=== PATIENT | female | born 1995 | race Caucasian/White ===

== ENCOUNTER → 2024-04-11 18:36 | Outpatient (REF) | payer OTHER, SELFPAY | LOC: MRI 18:36 | PROVIDERS: ATTENDING PHYSICIAN Nurse Practitioner Adult Health; FAMILY PHYSICIAN Family Medicine | DX: N93.9 Abnormal uterine and vaginal bleeding, unspecified (principal); Q51.28 Other and unspecified doubling of uterus; D25.9 Leiomyoma of uterus, unspecified | CPT/HCPCS: 72197; A9575 ==

== ENCOUNTER → 2024-07-25 16:09 | Outpatient (REF) | payer BC, SELFPAY | LOC: MRI 3T 16:09 | PROVIDERS: ATTENDING PHYSICIAN Nurse Practitioner Family; FAMILY PHYSICIAN Physician Assistant Medical | DX: D35.2 Benign neoplasm of pituitary gland (principal) | CPT/HCPCS: 70553; A9575 ==

== ENCOUNTER 2024-08-02 06:15 | Day surgery (SDC) | payer BC, SELFPAY ==
--- NOTE | 2024-07-31 06:18 | W.CON.GYNONC ---
Chief Complaint
-
abnormal uterine bleeding
History of Present Illness
29�year�old�presenting�to�the�office�for�consultation�referred�to�me�by�Dr.�Gerstein�and�Dr�Lima.�Patient�suffers�from�abnormal
uterine�bleeding,�she�started�her�period�at�age�9,�typically�she�bleeds�7�to�9�days,�bleeding�occurs�every�30�days,�she�tried�OCPs
for�3�months�in�2016�unsuccessfully.�Nowadays�2�to�3�days�out�of�the�month�the�patient�is�in�significant�pain�specially�right�lower quadrant�masses�work
MRI�of�the�pelvis�shows�uterine�didelphys,�3.6�cm�right�anterior�subserosal�uterine�leiomyoma,�1.9�cm�corpus�luteum�cyst�right ovary,�1.3�cm�simple�left�paraovarian�cyst�and�small�amount�of�peritoneal�fluid.
TRIAL MGR�history,�Pap�smear�normal�last�was�done�in�Neda�2023�from�left�and�right�cervix,�she�is�currently�on�not�any��control. She�has�had�prior�Gardasil�vaccination.
OB�history�total�pregnancies�0
Family�history�patient�is�adopted�does�not�know�her�family�history Medications�include�Advair�discus�aerosol�Powder�breath�albuterol�meclizine�naproxen
Allergies No�Known�Allergies Medications
Past�Medical�History asthma covid�19 uterus�didelphys�+�2�cervices�and�vaginal�septum
Social�History Former�Smoker.�Year�Quit�2020. Social�use�of�alcohol. Occupational�Status:�Current:�government�employe. Marital�Status:�Patient�is�
Review�Of�Systems The�review�of�12�systems�is�negative�except�as�outlined�in�history�of�present�illness.
Medical History
Allergies
Allergies reflect when allergies were last updated in [facility].
No Known Allergies Allergy (Verified 07/26/24 14:19)
Physical Exam
Physical Exam
Pelvic�Examination:� External�normal�labia,�urethra,�anus.� Vagina:�Normal�mucosa.�There�is�no�vaginal�septum Cervix:�normal�appearance,�no�discharge.�2�osses�are�visualized Uterus:�normal�size. Adnexa:�No�pelvic�mass.� RVE:�no�masses�or�nodularity
General:�Well�developed,�well�nourished�patient.�In�no�acute�distress.
Neck:�No�thyromegaly.�No�cervical�lymphadenopathy.
Lungs:�Clear�to�auscultation.�Good�air�movement�bilaterally.
Cardiac:�Regular�rate.�Regular�rhythm.�No�murmurs�appreciated.
Right�Breast:�No�masses�or�dimpling.�No�nipple�discharge. Left�Breast:�No�masses�or�dimpling.�No�nipple�discharge. Abdomen:�Abdomen�is�soft.�Non�tender�to�palpation.�Non�distended.
Extremities:�No�edema. Hematologic/Lymphatic:�No�palpable�lymphadenopathy.
Skin:Non�jaundiced.�No�petechia.�No�purpura.
Neurologic:�Speech�is�fluent.�Normal�gait�and�station.�Cranial�nerves�intact.
Results
-
[facility]
[address] [place] [address]
[phone]
Patient Name: REGINE PEREZ
: 1995
Unit Number: [id number]
Age/Sex: 29/F
Patient
Location: MRI 3T
Order Provider: Yanelis Becerril
Exam Service Date: 07/25/24

Magnetic Resonance Imaging Rpt
SignedOrder #:[id number]
Exams: MR Brain W/o & With Contrast
CPT: 06700
PROCEDURE: MR Brain W/o  With Contrast
COMPARISON: Brain MRI dated 10/23/2015
CLINICAL INDICATION: Headache, dizziness, visual changes, elevated prolactin
TECHNIQUE: Scanning through the head performed using dedicated pituitary protocol before and after IV gadolinium administered
FINDINGS: No intracranial hemorrhage, mass effect, midline shift. Brain volume is normal. There is increased inversion recovery signal in the white matter adjacent to the posterior body of each lateral ventricle. This is similar to previous MRI.
Finding on the right measures 9 mm in diameter. Finding on the left measures 1.4 cm in diameter. 2 tiny foci of increased inversion recovery signal in the right centrum semiovale. These are seen on series 501, image 18. These are stable. No new
lesion in the brain. No restricted diffusion or abnormal enhancement by the brain.
7th and 8th nerves normal in appearance as they exit the brainstem and enter the internal auditory canals. Flow voids unremarkable. Paranasal sinuses are clear.
Pituitary is normal in size and configuration. Again noted is vertically oriented nonenhancing focus between the adenohypophysis and neurohypophysis. This is well seen on series 901, image 9. This measures 7 mm in craniocaudal diameter and 3 mm in
AP diameter. 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 Pituitary otherwise unremarkable. Pituitary stalk is midline. No suprasellar cistern mass. Optic chiasm normal in appearance.
IMPRESSION:
No change in vertically oriented nonenhancing focus between the adenohypophysis and neurohypophysis. 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
There is no MR evidence for pituitary adenoma
Redemonstration of increased inversion recovery signal in white matter adjacent to posterior body of each lateral ventricle. 2 stable tiny foci of increased inversion recovery signal in right centrum semiovale. These findings are nonspecific. They
could be related to vasculitis, demyelinating process such as multiple sclerosis, Lyme disease, migraine. Please correlate with clinical and laboratory data.
Electronically signed by Grady Mitchell MD, 07/26/2024 10:24 AM
Dictated By: Stephen TORO,Grady Barton.
Dictated Date & Time: 07/26/24 1005

[facility]
[address] [place] [address]
[phone]
Patient Name: REGINE PEREZ
: 1995
Unit Number: [id number]
Age/Sex: 28/F
Patient
Location: MRI
Order Provider: Hayley Méndez
Exam Service Date: 04/11/24

Magnetic Resonance Imaging Rpt
SignedOrder #:[id number]
Exams: MR Pelvis W/o & With Contrast
CPT: 21479
PROCEDURE: MR Pelvis W/o  With Contrast
CLINICAL INDICATION: Abnormal uterine bleeding (AUB). Uterine didelphys. Uterine fibroid. Severe right-sided pelvic and lower abdominal pain.
TECHNIQUE: An MRI examination of the pelvis was performed with and without intravenous contrast on a 1.5 Candy magnet. Sagittal T2 fat-suppressed, sagittal T1 fat-suppressed, oblique axial T1, oblique axial T2 fat-suppressed, oblique coronal T2
fat-suppressed, and oblique axial fat suppressed Thrive imaging sequences were obtained prior to the administration intravenous contrast. Following the intravenous administration of 16 mL Clariscan gadolinium contrast material, oblique axial thrive,
sagittal T1 fat-suppressed, oblique coronal T1 fat-suppressed imaging sequences were obtained.
COMPARISON: Comparison is made with a CT examination of the abdomen and pelvis performed 08/31/2022 and an MRI examination of the pelvis performed 07/01/2022.
FINDINGS:
UTERUS: The uterus is anteverted. There are 2 separate uterine horns and 2 separate cervixes consistent with a uterine didelphys. The endometrium measures 2.2 cm in thickness in the right uterine horn and 1.7 cm in thickness in the left uterine
horn. There is a 3.0 x 3.6 x 2.5 cm subserosal mass exophytic from the right anterior body of the right uterine horn containing mostly low T2 signal with small central internal foci of high T1 signal suggesting subacute hemorrhage or necrosis. There
is a minimal amount of peritoneal fluid between the 2 uterine horns.
RIGHT OVARY: There is a 1.9 x 1.8 x 1.8 cm thick-walled rim-enhancing enhancing corpus luteal cyst in the right ovary. There are small follicles in the right ovary. There is a small amount of peritoneal fluid around the right ovary.
LEFT OVARY: There are multiple small follicles in the left ovary. There is a 1.3 x 1.2 x 1.0 cm simple paraovarian cyst superior and lateral to the left ovary surrounded by small amount of peritoneal fluid.
The urinary bladder appears normal. There is no pelvic lymphadenopathy.
GASTROINTESTINAL TRACT: There is no abnormal distention or wall thickening in the sigmoid colon or rectum.
SKELETON: There is no bone marrow edema adjacent to the sacroiliac joints to suggest sacroiliitis. There is no subchondral bone marrow edema or joint effusion in either hip. There is a transitional lumbosacral vertebral segment.
IMPRESSION:
1. UTERINE DIDELPHYS.
2. 3.6 cm right anterior subserosal uterine leiomyoma.
3. 1.9 cm corpus luteal cyst in the right ovary.
4. 1.3 cm simple left paraovarian cyst.
5. Small amount of peritoneal fluid around the ovaries and between the uterine horns.
Electronically signed by Alex Hodge MD, 04/12/2024 9:24 AM
Dictated By: Ayesha TORO,Alex Mann.
Dictated Date & Time: 04/12/24802

[facility]
[address] [place] [address] [place] [address]
[phone]
Patient Name: REGINE PEREZ
: 1995
Unit Number: [id number]
Age/Sex: 27/F
Patient
Location: EMR
Order Provider: Efrain Pereyra PA-C
Exam Service Date: 08/31/22

Diagnostic Imaging Report
SignedOrder #:[id number]
Exams: CT Abd/pel W Iv And Oral Contr
Scanning parameters: CT of the abdomen and pelvis with intravenous contrast material was obtained. Automated exposure control was used.
INDICATION: Right lower quadrant pain
Comparison examination: 07/01/2022
FINDINGS:
The lung bases are clear.
The liver is normal.
The spleen is normal.
The pancreas is normal.
The gallbladder is normal.
The kidneys are normal.
There is no hydronephrosis.
The adrenals are normal.
There is no abdominal lymphadenopathy.
There is no pelvic lymphadenopathy.
There is no inguinal lymphadenopathy.
The urinary bladder is normal.
There is no acute bowel pathology.
The appendix is normal
There are no areas of bowel wall thickening or pericolonic inflammatory stranding
There is uterus didelphys with 3.4 cm exophytic fibroid at the right uterine fundus
There is a 13 mm right ovarian cyst
There are no areas of pericolonic inflammatory stranding.
There are no significant osseous abnormalities.
IMPRESSION:
1).There is uterus didelphys with 3.4 cm exophytic fibroid at the right uterine fundus
2). There is a 13 mm right ovarian cyst
Electronically signed by Prashant Marsh MD 08/31/2022 10:31 PM
Impression / Plan
-
Patient�has�uterine�didelphys,�she�has�abnormal�uterine�bleeding,�she�has�significant�dysmenorrhea�and�she�has�had�elevated prolactin�level
#1�a�panel�of�blood�work�will�be�done�to�reassess�coagulation�factors�and�assess�for�her�anemia�and�source�of�anemia.�Any�iron deficiency�needs�to�be�addressed
#2�repeat�prolactin�level,�repeat�MRI�of�the�brain,�refer�to�neurosurgery�for�possible�assessment #3�patient�has�a�lot�of�fear�about�swallowing�and�states�that�is�difficult�for�her,�a�video�barium�swallow�and�upper�GI�is�ordered
#4�patient�needs�to�undergo�exam�under�anesthesia,�assessment�of�both�cervical�canal�and�uterine�cavities�with�D&C�hysteroscopy to�exclude�possibility�of�hyperplasia�or�endometrial�cancer
#5�I�am�inclined�to�ensure�that�we�do�not�have�ability�to�correct�her�abnormal�bleeding�using�medical�intervention�such�as�oral
contraceptive�pills,�or�correction�of�her�prolactin�level�before�surgical�treatment�is�employed.
She�informs�me�that�she�is�not�interested�in�childbearing�now�or�in�the�future.�If�she�needs�to�have�a�hysterectomy�she�is�accepting
of�that�and�came�to�me�primarily�to�discuss�that.�I�do�believe�she�is�a�candidate�eventually�if�she�wants�to�for�robotic�assisted�total
laparoscopic�hysterectomy�with�bilateral�salpingectomy�and�preservation�of�by�both�of�her�ovaries.�I�will�discuss�this�option�with�her later�when�we�have�more�information.
[2024-08-02] VITALS (11 sets, daily range): BP systolic 108–126; BP diastolic 66–79
[2024-08-02] MEDS: HEPARIN 5000 UNITS SC (07:31)
[2024-08-02] MEDS: NORMOSOL-R/PLASMALYTE-A 1000 IV (07:33)
--- NOTE | 2024-08-02 10:00 | SUR.PHASEI ---
1000 - sleeps unless disturbed, vss, when awakened c/o - ' I have to pee' - and then states pain- ' I don't do well with pain'. Will medicate for same, though quickly falls back to sleep
[2024-08-02] MEDS: DILAUDID 0.5 MG IV (10:06)
--- NOTE | 2024-08-02 10:08 | OR.RPT ---
Operative Report
Operative Report
Date of procedure: August 02, 2024
Preoperative diagnosis: Abnormal uterine bleeding, congenital malformation with uterine didelphys
Postoperative diagnosis same plus multiple uterine polyps
Procedure:
#1 exam under anesthesia
#2 excision of vaginal septum
#3 diagnostic hysteroscopy, MyoSure polypectomy right uterus
#4 fractional D&C right uterus
#5 diagnostic hysteroscopy, MyoSure polypectomy left uterus
#6 fractional D&C left uterus
Surgeon: Suleiman Hargrove MD
Assist: Papa Toscano PA-C
Anesthesia: General , LMA intubation
Complication: None
Estimated blood loss: 50 cc
Specimens: Vaginal septum, right endocervical curettage, left endocervical curettage, right EMC, left EMC, MyoSure shavings right uterine cavity, MyoSure shavings left uterine cavity
Procedure in detail: This patient was taken to the operating room for a detailed evaluation of anatomical abnormalities as well as assessment of etiology of abnormal uterine bleeding. Upon arrival to the operating room she was placed in supine
position, general anesthesia was administered she was intubated without any difficulty. She was placed in lithotomy position using yellowfin stirrups and prepped on the abdomen perineum and vagina and she was draped. Timeout procedure was carried
out, she received Ancef 2 g IV for prophylaxis. Patient has normal bilateral right and left vulva, there is a midline vaginal septum creating a right and left vaginal canal. The septum is vertical in nature. With great degree of difficulty I was
able to placed small Huerta retractors in each of the vaginal canals and identify the cervix at the apex of each cavity. Given some of the complaints that the patient's have including inability to use tampons with her menstrual cycle decision was
made to perform excision of the vaginal septum. The septum was grasped with Allis clamp. Vargas catheter was placed in the bladder, the location of rectum was identified. I used a laparoscopic voyant vessel sealer to seal and divide across the
superior aspect of the vaginal septum as well as the inferior aspect of the vaginal septum all the way up to the level of right and left cervix. I transected the septum at this level and submitted the specimen to pathology good hemostasis was
present. There was no injury to either bladder urethra or rectum.
Next we started with the right cervix. Anterior lip was grasped with single-tooth tenaculum. Paracervical block with 5 cc 1% lidocaine was injected at 7:00. ECC specimen was collected and submitted to pathology. The cervical canal was dilated,
this uterus sounded to 11 cm. Hysteroscope was placed in the uterine cavity and multiple endometrial polyps were present. I used the MyoSure lite to resect the polyps down to its base. Next the cervical canal was further dilated and sharp
curettage of the right uterine cavity was performed and additional polypoid tissue was removed and submitted to pathology.
Next we proceeded to the left cervix. Anterior lip was grasped with single-tooth tenaculum, paracervical block was performed with 1 5 cc 1% lidocaine injected at 5:00. ECC specimen was collected and submitted to pathology from left cervix. The
cervical canal was dilated and the uterus sounded to 10 cm, hysteroscope was placed in the uterine cavity, multiple endometrial polyps were encountered. I used the MyoSure lite to resect the polyps down to its base one of the areas was suspicious
for presence of a submucosal leiomyoma. Next the cervical canal was further dilated and sharp curettage of the left uterine cavity was performed and tissue was submitted to pathology.
All instruments were removed I irrigated the vagina with sterile saline. There was no evidence of bleeding from site of the excision of vaginal septum. Some blood was still coming out of uterine cavities after the D&C which is to be expected. I
reexamined the rectum and bladder and there was no injuries. Vargas catheter was removed. Patient was awakened extubated and returned back to recovery room stable awake and extubated condition. Counts of laps instruments and needle was correct x
2. I was present and scrubbed for entire procedure as dictated above
Disposition: To PACU stable awake and extubated
--- NOTE | 2024-08-02 10:11 | SUR.PHASEI ---
medicated for pain, snoring
[2024-08-02] MEDS: TORADOL 15 MG IV (12:32)
== END 2024-08-02 12:55 | disposition home or self-care (01) ==
LOC: SDS 06:15
PROVIDERS: ATTENDING PHYSICIAN Obstetrics & Gynecology Gynecologic Oncology
DX: N84.0 Polyp of corpus uteri (principal); N93.8 Other specified abnormal uterine and vaginal bleeding; Q51.21 Complete doubling of uterus
CPT/HCPCS: 58558; 57130; 88304; 88305; C1776

== ENCOUNTER 2024-08-19 17:18 | Observation (INO) | payer BC, SELFPAY ==
[2024-08-19] VITALS (40 sets, daily range): BP systolic 62–141; BP diastolic 35–90; BMI 36.0
--- NOTE | 2024-08-19 10:33 | ED.GENMED ---
Addendum entered and electronically signed by Yash Stewart DO 08/21/24 23:56:
Pt had second episode of hypotension which was not related to iv medication. She had already had 1500cc's of normal saline and therefore further crystalloid was not appropriate. Therefore 2 units of packed red blood cells were ordered for
hemorrhagic shock. Patient did stabilize. She was taken to the OR by Dr. Arzate.
Critical care statement: A total of 45 minutes of critical care time was provided for this patient. This includes management of unstable vital signs, evaluation of the patient at bedside, reviewing the patient's pertinent medical records, discussion
with consultants, review of old EKGs and review of pertinent medical records. This time with separate from time utilized to perform the aforementioned documented procedures
Original Note:
History of Present Illness
<Renetta Patel PA-C - Last Filed: 08/19/24 15:27>
General
Chief Complaint: Vaginal Bleeding
Source: patient and records
Exam Limitations: none
Time Seen by Provider: 08/19/24 10:20
History of Present Illness
History of Present Illness:
29yoF with a history of abnormal uterine bleeding and uterine didelphys presenting with her for evaluation of vaginal bleeding. Patient underwent excision of vaginal septum and hysteroscopy/MyoSure polypectomy/fractional D&C of bilateral uteri
with Dr. Hargrove on 08/02/24. Patient has been having a small amount of bleeding since the procedure. She started to have increasing cramping yesterday. She woke up this morning with heavy bleeding. She reports passing large clots. She has gone
through 7+ pad so far today and is saturating through a large pad every 20 minutes. She reports feeling dizzy but denies any syncope. This is her first menses since her surgery. She has a history of heavy periods but none that have been this
heavy before.
Past History
<Renetta Patel PA-C - Last Filed: 08/19/24 15:27>
Past History
ED Past Medical History: Asthma
ED Past Surgical History: None
Social History
Tobacco: Non-smoker
Alcohol: None
Drug: None
Personal: Single
Living: with family
Employment: Employed
Phy Exam
<Renetta Patel PA-C - Last Filed: 08/19/24 15:27>
General Physical Exam
General Presentation: moderate distress
General Skin: warm and dry
General Habitus: normal
General Mental: alert
ENT Exam
ENT Exam: normocephalic
Cardiovascular Exam
Cardiovascular Exam: tachycardia
Gastrointestinal Exam
Gastrointestinal Exam: soft, non distended and other (+Tenderness in suprapubic region. Abdomen soft, non-distended. )
Genitourinary Exam Female
Vaginal Bleeding: clots, severe and other (Large amount of bright red vaginal bleeding. Clots removed from introitus. Speculum exam limited due to severe pain.)
Neurological Exam
Neurological Exam: alert
Betty Coma Scale
Eye Opening: Spontaneous
Verbal Response: Oriented
Motor Response: Obeys Commands
GCS Total Score: 15
Skin Exam
Skin Exam: warm/dry
Psychiatric Exam
Psychiatric Exam: anxious
Course
<Renetta Patel PA-C - Last Filed: 08/19/24 15:27>
Orders/Labs/Results
Orders:
Orders
08/19/24 10:33
0.9% Sodium Chloride 500 ml [Nss] 500 ml IV BOLUS
Morphine Sulfate 4 mg IV NOW STA
Test Result ONCE
08/19/24 10:38
Type+Screen Urgent
Complete Blood Count/With Diff Urgent
Comprehensive Metabolic Panel Urgent
HCG, Serum Qualitative Screen Urgent
PTT Urgent
Prothrombin Time Urgent
08/19/24 10:43
CT Angio Pelvis W/Wo Iv Contrast [CT Pelvis Angio W/wo Iv Contra] Urgent
Comment:
Reason For Exam: Heavy vaginal bleeding
08/19/24 10:53
Emergent Blood Release Stat
Blood Bank Products: *Packed RBC Leuko(PRBC's)
Quantity: 2
Reason: Bleeding
A Blood Permit is Required for all Blood.
FOR LAB PICKUP:
Take order sheet to Blood Bank to clam picker blood products in validated cooler
Immediately return to patient care area.
Blood products released by
Blood Products picked up by
Sent to
Date and Time
08/19/24 11:00
ABO2 Stat
BBK Wristband Number:
Associate notified that ABO2 has been ordered: [id number]
Date: 08/19/24
Time: 10:59
Apprenticeship Representative ID: [id number]
08/19/24 12:18
HYDROmorphone [Dilaudid] 0.5 mg IV NOW STA
08/19/24 12:26
Compression Sleeves [Pneumatic Compression Sleeves] As Directed
Type: Thigh high
08/19/24 12:27
CeFAZolin 2 GRAM [Ancef] 2 grams in 10 ml IV NOW
08/19/24 12:28
DX Deep Vein Thrombosis Video Routine
08/19/24 12:30
Ondansetron Injectable [Zofran] 4 mg .ROUTE .STK-MED ONE
08/19/24 12:31
Ondansetron Injectable [Zofran] 4 mg IV NOW STA
08/19/24 12:32
Blood Bank Products [* Blood Bank Products] Stat
Blood Bank Products: *Packed RBC Leuko(PRBC's)
Quantity: 2
Transfuse Today: Yes
Reason: Bleeding
08/19/24 12:35
0.9% Sodium Chloride 500 ml [Nss] 500 ml IV BOLUS
08/19/24 12:37
Hemoglobin Urgent
08/19/24 13:54
Lidocaine HCl/Pf [Xylocaine-Mpf 1% Vial] 50 mg .ROUTE .STK-MED ONE
Propofol [Diprivan] 20 ml .ROUTE .STK-MED
08/19/24 14:15
Fentanyl Citrate/Pf [Sublimaze] 25 mcg IV PACU-Q5MPRN PRN
Fentanyl Citrate/Pf [Sublimaze] 50 mcg IV PACU-Q5MPRN PRN
Meperidine [Demerol] 12.5 mg IV PACU-Q5MPRN PRN
Normosol (Mult Electrolytes) [Normosol-R/Plasmalyte-A] 1,000 ml IV PER PROTOCOL
Ondansetron Injectable [Zofran] 4 mg IV PACU-ONCEPRN PRN
Prochlorperazine [Compazine] 5 mg IV PACU-ONCEPRN PRN
Notify MD As Directed
Notify physician if: for SDS patients with known or suspected sleep obstructive sleep apnea, monitor in the
PACU.
Notify MD for any apneic/desaturation episodes
O2 Therapy [RESP] Urgent
Titrate/Wean O2 to maintain O2 sat greater than (%): 92
Special Instructions: -Provide supplemental oxygen to achieve O2 sat of 92% or greater.
-After 15 min, may wean O2 and discontinue if patient is able to maintain O2 sat of 92%
or greater during recovery period.
If patient is a discharge home, without oxygen therapy, notify anestheiologist if
unable to maintain O2 SAT of 92% or greater on room air for MD clearance.
08/19/24 14:32
Rocuronium Byram [Rocuronium] 50 mg .ROUTE .STK-MED ONE
08/19/24 14:33
Midazolam HCl [Versed] 2 mg .ROUTE .STK-MED ONE
08/19/24 14:34
Fentanyl Citrate/Pf [Sublimaze] 100 mcg .ROUTE .STK-MED ONE
Succinylcholine Chloride [Succinylcholine] 200 mg .ROUTE .STK-MED ONE
08/19/24 15:06
Dexamethasone Sod Phosphate [Decadron] 20 mg .ROUTE .STK-MED ONE
08/19/24 15:08
CeFAZolin SODIUM [Ancef] 2,000 mg .ROUTE .STK-MED ONE
Abnormal Lab Results
08/19/24 08/19/24
10:38 12:37
RBC 3.79 L 10^6/uL
(4.20-5.40)
Hgb 11.1 L g/dL 8.7 L D g/dL
(12.0-16.0) (12.0-16.0)
Hct 32.2 L %
(37.0-47.0)
Glucose 111 H mg/dl
(70-99)
Crossmatch IS Only See Detail
08/19/24 12:37
08/19/24 10:38
Vital Signs
Initial and Last Documented VS:
Initial Vital Signs
Temp Pulse Resp BP Pulse Ox
97.9 F 125 22 141/90 100
08/19/24 10:07 08/19/24 10:07 08/19/24 10:07 08/19/24 10:07 08/19/24 10:07
Last Documented Vital Signs
Temp Pulse Resp BP Pulse Ox
97.9 F 90 10 100/58 99
08/19/24 10:07 08/19/24 14:00 08/19/24 14:00 08/19/24 14:00 08/19/24 14:00
Millielt;Yash Stewart DO - Last Filed: 08/19/24 11:06>
Orders/Labs/Results
Orders:
Orders
08/19/24 10:33
0.9% Sodium Chloride 500 ml [Nss] 500 ml IV BOLUS
Morphine Sulfate 4 mg IV NOW STA
Test Result ONCE
08/19/24 10:38
Type+Screen Urgent
Complete Blood Count/With Diff Urgent
Comprehensive Metabolic Panel Urgent
HCG, Serum Qualitative Screen Urgent
PTT Urgent
Prothrombin Time Urgent
08/19/24 10:43
CT Angio Pelvis W/Wo Iv Contrast [CT Pelvis Angio W/wo Iv Contra] Urgent
Comment:
Reason For Exam: Heavy vaginal bleeding
08/19/24 10:53
Emergent Blood Release Stat
Blood Bank Products: *Packed RBC Leuko(PRBC's)
Quantity: 2
Reason: Bleeding
A Blood Permit is Required for all Blood.
FOR LAB PICKUP:
Take order sheet to Blood Bank to clam picker blood products in validated cooler
Immediately return to patient care area.
Blood products released by
Blood Products picked up by
Sent to
Date and Time
08/19/24 11:00
ABO2 Stat
BBK Wristband Number:
Associate notified that ABO2 has been ordered: [id number]
Date: 08/19/24
Time: 10:59
Apprenticeship Representative ID: [id number]
08/19/24 12:18
HYDROmorphone [Dilaudid] 0.5 mg IV NOW STA
08/19/24 12:26
Compression Sleeves [Pneumatic Compression Sleeves] As Directed
Type: Thigh high
08/19/24 12:27
CeFAZolin 2 GRAM [Ancef] 2 grams in 10 ml IV NOW
08/19/24 12:28
DX Deep Vein Thrombosis Video Routine
08/19/24 12:30
Ondansetron Injectable [Zofran] 4 mg .ROUTE .STK-MED ONE
08/19/24 12:31
Ondansetron Injectable [Zofran] 4 mg IV NOW STA
08/19/24 12:32
Blood Bank Products [* Blood Bank Products] Stat
Blood Bank Products: *Packed RBC Leuko(PRBC's)
Quantity: 2
Transfuse Today: Yes
Reason: Bleeding
08/19/24 12:35
0.9% Sodium Chloride 500 ml [Nss] 500 ml IV BOLUS
08/19/24 12:37
Hemoglobin Urgent
08/19/24 13:54
Lidocaine HCl/Pf [Xylocaine-Mpf 1% Vial] 50 mg .ROUTE .STK-MED ONE
Propofol [Diprivan] 20 ml .ROUTE .STK-MED
08/19/24 14:15
Fentanyl Citrate/Pf [Sublimaze] 25 mcg IV PACU-Q5MPRN PRN
Fentanyl Citrate/Pf [Sublimaze] 50 mcg IV PACU-Q5MPRN PRN
Meperidine [Demerol] 12.5 mg IV PACU-Q5MPRN PRN
Normosol (Mult Electrolytes) [Normosol-R/Plasmalyte-A] 1,000 ml IV PER PROTOCOL
Ondansetron Injectable [Zofran] 4 mg IV PACU-ONCEPRN PRN
Prochlorperazine [Compazine] 5 mg IV PACU-ONCEPRN PRN
Notify MD As Directed
Notify physician if: for SDS patients with known or suspected sleep obstructive sleep apnea, monitor in the
PACU.
Notify MD for any apneic/desaturation episodes
O2 Therapy [RESP] Urgent
Titrate/Wean O2 to maintain O2 sat greater than (%): 92
Special Instructions: -Provide supplemental oxygen to achieve O2 sat of 92% or greater.
-After 15 min, may wean O2 and discontinue if patient is able to maintain O2 sat of 92%
or greater during recovery period.
If patient is a discharge home, without oxygen therapy, notify anestheiologist if
unable to maintain O2 SAT of 92% or greater on room air for MD clearance.
08/19/24 14:32
Rocuronium Byram [Rocuronium] 50 mg .ROUTE .STK-MED ONE
08/19/24 14:33
Midazolam HCl [Versed] 2 mg .ROUTE .STK-MED ONE
08/19/24 14:34
Fentanyl Citrate/Pf [Sublimaze] 100 mcg .ROUTE .STK-MED ONE
Succinylcholine Chloride [Succinylcholine] 200 mg .ROUTE .STK-MED ONE
08/19/24 15:06
Dexamethasone Sod Phosphate [Decadron] 20 mg .ROUTE .STK-MED ONE
08/19/24 15:08
CeFAZolin SODIUM [Ancef] 2,000 mg .ROUTE .STK-MED ONE
Abnormal Lab Results
08/19/24 08/19/24
10:38 12:37
RBC 3.79 L 10^6/uL
(4.20-5.40)
Hgb 11.1 L g/dL 8.7 L D g/dL
(12.0-16.0) (12.0-16.0)
Hct 32.2 L %
(37.0-47.0)
Glucose 111 H mg/dl
(70-99)
Crossmatch IS Only See Detail
08/19/24 12:37
08/19/24 10:38
Vital Signs
Initial and Last Documented VS:
Initial Vital Signs
Temp Pulse Resp BP Pulse Ox
97.9 F 125 22 141/90 100
08/19/24 10:07 08/19/24 10:07 08/19/24 10:07 08/19/24 10:07 08/19/24 10:07
Last Documented Vital Signs
Temp Pulse Resp BP Pulse Ox
97.9 F 90 10 100/58 99
08/19/24 10:07 08/19/24 14:00 08/19/24 14:00 08/19/24 14:00 08/19/24 14:00
<Renetta Patel PA-C - Last Filed: 08/19/24 15:27>
MDM/Problems Addressed
Differential Diagnosis Includes:
29yoF here with heavy vaginal bleeding that began at 7:30am this morning. Hx of uterine didelphys. Underwent D&C and polypectomy in both uteri on 08/02/24. Mild bleeding since procedure which became heavy today. Saturating through pads every 20
minutes. C/o feeling dizzy. HR 125 on arrival. BP stable. There is a large amount of pooling blood noted on exam with large clots. Speculum exam limited due to pain. Differential diagnosis includes but is not limited to: dysfunctional uterine
bleeding, menses, acute blood loss anemia
Initial ED plan: Check CBC, CMP, coags, type and screen. Will discuss with her surgeon, Dr. Hargrove. Patient in severe pain after attempted speculum exam. IV morphine and fluid bolus ordered.
<Renetta Patel PA-C - Last Filed: 08/19/24 15:27>
*Critical Care Note
Total Time (30-74mins, 75-104mins- exclusive of procedures): 45
<Renetta Patel PA-C - Last Filed: 08/19/24 15:27>
Update Note
Update Note:
I was called to bedside by nursing staff shortly after initial assessment. Blood pressure dropped to 60s over 30s. Patient now appears pale. This occurred shortly after receiving morphine. Heart rate normal so this could be a vagal episode or a
reaction for morphine. Patient then started to report that her legs felt numb. 2 units uncrossed blood ordered. Prior to blood arriving, blood pressure is now rebounding so uncrossed blood was not administered. Hemoglobin returned at 11.1.
Delvin recommending TVUS and CT angiogram of the pelvis. Dr. Hargrove currently at [facility] and Dr. Amato was consulted for assistance.
CTA pelvis does not show evidence of contrast extravasation with no evidence of active bleeding. Patient did become hypotensive again and 2 units of crossed PRBCs ordered and administered. Patient assessed by Dr. Amato and patient to go to the OR
for exam under anesthesia.
ED Attending Note
<Renetta Patel PA-C - Last Filed: 08/19/24 15:27>
-
Portions of this chart may have been created with voice recognition software.� Occasional wrong word or��sound alike� substitutions may have occurred due to the inherent limitations of voice recognition software.
<Yash Stewart DO - Last Filed: 08/19/24 11:06>
ED Attending Note
Patient seen and examined by attending physician: Yes
I performed the substantive portion of visit, reviewed & personally made and approve the management plan that is documented in note by myself or LUTHER.: Yes
ED Attending Note:
I agree with Mariah's note
29-year-old female presents with heavy vaginal bleeding. Patient is approximately 27 days postop resection of vaginal septum as well as D&C of uteri. Patient began having vaginal bleeding this morning. She has also had cramping and passing of
large, baseball sized clots. Patient feels dizzy. She does not take any oral anticoagulants
General: Awake, Alert, Oriented X3. No acute distress
Vitals: Tachycardic on arrival. Period of hypotension which occurred after the administration of morphine.
Head: Atraumatic
Eyes: Pupils equal, EOMI
Throat: Airway intact, no exudates
Neck: Trachea midline
Lungs: Clear and equal b/l
Heart: Regular rate, no murmurs
Abd: Soft, Nontender, No pulsatile mass
Genitalia: Blood noted emanating from the vagina and pooling on the bed.
Neuro: Nonfocal
Skin: Warm, dry, no rash
Extremities: pulses equal b/l, no edema
Patient presents with heavy vaginal bleeding. She is status post gynecologic surgery. Patient quite uncomfortable on arrival. Morphine administered followed by a period of hypotension. This could be hemorrhagic shock but I think it is also
likely related to histamine release from morphine and vasovagal component. IV fluids initially administered. Pressure as low as 60/40. Patient began complaining of her legs feeling numb. Emergency release blood requested. Her blood pressure has
begun to improve with just a small fluid bolus. We will closely monitor her and administer blood if she has further hypotension. In the interim Mariah has communicated with Dr. Abad he was requested a transvaginal ultrasound and a CT angiogram
of the pelvis. He is also asked VALIDATION SPECIALIST on-call to come evaluate the patient as he is tied up in the OR at another facility. Dr. Arzate will come and evaluate the patient
Discharge Plan
Departure
Patient Disposition: Admit
Date of Disposition: 08/19/24
Time of Disposition: 12:11
Presentation/result/management discussed w/ accepting MD/DO: Dr. Amato
Discharge Problem:
Abnormal vaginal bleeding
Interventions
Interventions:
*Risk Screen - Suicide Last Done: 08/19/24 10:07
*General Assessment Last Done: 08/19/24 10:07
*ED- Fall Risk Assessment Last Done: 08/19/24 10:22
*ED COVID-19 Vaccine History Last Done: 08/19/24 10:07
*Nursing Disposition Last Done: 08/19/24 14:39
ED-Female Genitourinary Assessment Last Done: 08/19/24 10:22
Discharge Date and Time
Discharge Date/Time: 08/19/24 14:40
[2024-08-19] MEDS: NSS 500 IV ×2 (10:36→12:35)
[2024-08-19] MEDS: MORPHINE SULFATE 4 MG IV (10:39)
[2024-08-19 10:48] LABS: % Basophils 0.7 % (0-2); % Immature Granulocytes 0.3 % (0-0.5); % Lymphocytes 35.2 % (20.5-51.1); % Monocytes 7.5 % (1.7-9.3); % Neutrophils 54.3 % (42.2-75.2); Absolute Eosinophils 0.1 10^3/uL (0-0.7); Absolute Lymphocytes 2.1 10^3/uL (1.2-3.4); Absolute Monocytes 0.4 10^3/uL (0.1-0.6); Absolute Neutrophils 3.2 10^3/uL (1.4-6.5); Hematocrit 32.2 % (37.0-47.0); Hemoglobin 11.1 g/dL (12.0-16.0); Mean Corp Hgb Conc. 34.5 g/dL (33.0-37.0); Mean Corpuscular Hgb 29.3 pg (27.0-31.0); Mean Platelet Volume 9.1 fL (7.4-10.4); Nucleated Red Blood Cells % 0 %; Platelet Count 356 10^3/uL (130-400); Red Blood Cell Count 3.79 10^6/uL (4.20-5.40); Red Cell Dist. Width 13.2 % (11.5-14.5); White Blood Cell Count 5.9 10^3/uL (4.8-10.8)
[2024-08-19 11:00] LABS: HCG, Serum Qualitative Screen Negative
[2024-08-19 11:03] LABS: APTT 26.7 Sec (23.4-35.0); INR 0.96; PT 13.1 Sec (11.4-14.6)
[2024-08-19 11:05] LABS: ALT (SGPT) 18 U/L (0-35); AST (SGOT) 16 U/L (14-36); Alkaline Phosphatase 67 U/L (38-126); Blood Urea Nitrogen 13 mg/dl (7-17); Calcium 9.2 mg/dl (8.4-10.2); Carbon Dioxide 22 mmol/L (22-30); Chloride 106 mmol/L (98-107); Estimated Creatinine Clearance 112 ml/min; Glucose 111 mg/dl (70-99); Potassium 4.5 mmol/L (3.5-5.1); Sodium 136 mmol/L (135-145); Total Bilirubin 0.4 mg/dl (0.2-1.3); Total Protein 6.9 g/dl (6.3-8.2); eGFR > 60.00
[2024-08-19] MEDS: ZOFRAN 4 MG IV (12:32)
[2024-08-19 13:05] LABS: Hemoglobin 8.7 g/dL (12.0-16.0)
[2024-08-19 16:26] LABS: Hematocrit 31.3 % (37.0-47.0); Hemoglobin 10.8 g/dL (12.0-16.0)
--- NOTE | 2024-08-19 18:00 | PTCARENOTE ---
Telephone report received from ELECTROPHYSIOLOGY TECHNICIAN Anne; patient arrived in bed, immediately assisted patient ambulating into bathroom, patient successfully voided, patient with vaginal packing intact, VSS; admission history obtained at bedside, IVF infusing,
will give detailed report to nightshift RN to continue with assessment.
[2024-08-19] MEDS: NORMOSOL-R/PLASMALYTE-A 1000 IV (18:19)
[2024-08-19 23:00] LABS: Hematocrit 30.6 % (37.0-47.0); Hemoglobin 10.8 g/dL (12.0-16.0)
[2024-08-20] MEDS: NORMOSOL-R/PLASMALYTE-A 1000 IV (02:32)
[2024-08-20 03:00] VITALS: BP 93/59
[2024-08-20] MEDS: TYLENOL ORAL SOLUTION 650 MG PO (03:33)
[2024-08-20 06:33] LABS: Hematocrit 27.7 % (37.0-47.0); Hemoglobin 9.7 g/dL (12.0-16.0); Mean Corpuscular Hgb 29.6 pg (27.0-31.0); Mean Corpuscular Volume 84.5 fL (81.0-99.0); Mean Platelet Volume 9.5 fL (7.4-10.4); Platelet Count 241 10^3/uL (130-400); Red Blood Cell Count 3.28 10^6/uL (4.20-5.40); Red Cell Dist. Width 13.6 % (11.5-14.5); White Blood Cell Count 8.6 10^3/uL (4.8-10.8)
[2024-08-20 07:32] VITALS: BP 97/60
[2024-08-20] MEDS: MOTRIN 600 MG PO (08:34)
[2024-08-20] MEDS: NORMOSOL-R/PLASMALYTE-A IV (10:47)
[2024-08-20 11:13] VITALS: BP 110/70
--- NOTE | 2024-08-20 12:09 | W.CON.GYNONC ---
Chief Complaint
-
discharge home today
History of Present Illness
29�year�old�presenting�to�the�office�for�consultation�referred�to�me�by�Dr.�Gerstein�and�Dr�Lima.�Patient�suffers�from�abnormal
uterine�bleeding,�she�started�her�period�at�age�9,�typically�she�bleeds�7�to�9�days,�bleeding�occurs�every�30�days,�she�tried�OCPs
for�3�months�in�2016�unsuccessfully.�Nowadays�2�to�3�days�out�of�the�month�the�patient�is�in�significant�pain�specially�right�lower quadrant�masses�work
MRI�of�the�pelvis�shows�uterine�didelphys,�3.6�cm�right�anterior�subserosal�uterine�leiomyoma,�1.9�cm�corpus�luteum�cyst�right ovary,�1.3�cm�simple�left�paraovarian�cyst�and�small�amount�of�peritoneal�fluid.
Due to these issues the patient was taken to the operating room 08/02 for exam under anesthesia, a vertical vaginal septum was identified which was completely resected, 2 separate D&C hysteroscopy's were performed.
path
A. Midline vaginal septum �Unremarkable squamous mucosal tissue.
B. Endocervical curettings, right cervix �Unremarkable endocervical and lower uterine segment tissue.
C. Myosure shavings, right uterus �Proliferative endometrium.
D. Endometrial curettings, right uterus �Proliferative endometrium.
E. Endocervical curettings, left cervix �Unremarkable endocervical and lower uterine segment tissue.
F. Myosure shavings, left uterus �Proliferative endometrium.
G. Endometrial curettings, left uterus � Proliferative endometrium.
Patient was doing well at home until yesterday morning, apparently she started bright red vaginal bleeding and she thought that it was the beginning of her menstrual cycle. She then went ahead and experienced significant bleeding while sitting at
the toilet taking shower and had some episodes of lightheadedness. She did have some constipation over the course of past week and had finally had a bowel movement. She came to the emergency room yesterday. She was examined by Dr. Lima in the
ER, I was unavailable due to being involved in surgery at outside hospital. Decision was made to perform an exam under anesthesia. Exam revealed presence of a bleeding vessel on the posterior wall of the vagina which was suture-ligated. Packing
was placed overnight. Patient has had some menstrual-like bleeding overnight. Hemoglobin on 3 separate occasions are 1010 and 9.7. She is hemodynamically stable and is not lightheaded.
PUBLIC POLICY MEDIATOR�history,�Pap�smear�normal�last�was�done�in�Neda�2023�from�left�and�right�cervix,�she�is�currently�on�not�any��control. She�has�had�prior�Gardasil�vaccination.
OB�history�total�pregnancies�0
Family�history�patient�is�adopted�does�not�know�her�family�history Medications�include�Advair�discus�aerosol�Powder�breath�albuterol�meclizine�naproxen
Allergies No�Known�Allergies Medications
Past�Medical�History asthma covid�19 uterus�didelphys�+�2�cervices�and�vaginal�septum
Social�History Former�Smoker.�Year�Quit�2020. Social�use�of�alcohol. Occupational�Status:�Current:�government�employe. Marital�Status:�Patient�is�
Review�Of�Systems The�review�of�12�systems�is�negative�except�as�outlined�in�history�of�present�illness.
Medical History
Allergies
NKDA
No Known Allergies Allergy
Medical History
Allergies
Allergies reflect when allergies were last updated in [employer].
No Known Allergies Allergy (Verified 08/02/24 07:23)
Physical Exam
Vital Signs / I&O
Vitals
Temp Pulse Resp BP Pulse Ox
98.2 F 101 16 110/70 98
08/20/24 11:13 08/20/24 11:13 08/20/24 11:13 08/20/24 11:13 08/20/24 11:13
I&O
08/18/24 08/19/24 08/20/2425
06:59 06:59 06:59 07:59
Intake Total 3140 / 3140
Output Total 250 / 250
Balance 2890 / 2890
Physical Exam
General: Well Developed and Well Nourished
HEENT: Normocephalic
Respiratory: Clear and Non Labored Respirations
Cardiac: S1/S2 and Regular Rhythm
GI: Soft, Non Tender, Non Distended and Normal Bowel Sounds
Musculoskeletal: No Clubbing
Skin: Warm
Neuro: Awake, Alert and Oriented
Psych: Calm
Results
-
08/20/24 05:27
08/19/24 10:38
Diagnostic Imaging Report
SignedOrder #:[id number]
Exams: CT Pelvis Angio W/wo Iv Contra
EXAMINATION: CT angiography of the pelvis without and with intravenous contrast
INDICATION: 29-year-old with heavy vaginal bleeding. Reported history of DC with polyp removal and excision of vaginal septum on August 02. History of uterine didelphys. Hemoglobin of 11.1, which was 13.7 on August 31, 2022.
COMPARISON: MRI of the pelvis from April 11, 2024. CT of the abdomen and pelvis from August 31, 2022.
FINDINGS: Initial unenhanced CT images of the pelvis. With intravenous contrast, arterial phase CT angiography of the pelvis is performed, with additional delayed images 1 minute and 23 seconds later. Source axial images are reviewed as well as 3-D
volume and multiplanar reconstructions.
Rounded areas of increased density is present within the vagina, extending superiorly toward the junction with the cervixes, compatible with hematoma.
On CT angiography, there is no evidence for active contrast extravasation, with no angiographic evidence for active bleeding.
The uterine horns appear within normal limits bilaterally.
Both ovaries appear normal.
No significant abnormality urinary bladder.
Moderate amount of stool within the rectum, transverse dimension of 7 cm. No evidence for stercoral colitis.
No significantly enlarged abdominal or pelvic lymph nodes are identified.
IMPRESSION: History of uterine didelphys with surgery on August 02.
Rounded areas of increased density within the vagina, extending superiorly to the junction with the inferior cervices. This would be compatible with hematoma.
There is no evidence for dilated contrast extravasation, with no evidence for active bleeding.
Electronically signed by Chris Pierre MD, 08/19/2024 11:59 AM
[facility] Dose Report: Up-to-date CT equipment and radiation dose reduction techniques were employed. CTDIvol: 2.4 - 16.2 mGy. DLP: 1486 mGy-cm.
Dictated By: Ignacio TORO,Chris Minor.
Dictated Date & Time: 08/19/24 1144
Impression / Plan
-
Patient has
1. acute blood loss anemia secondary to bleeding from posterior vaginal incision.
2. s/p blood transfusion
I suspected her constipation and passage of large bowel movement might have distended the posterior vaginal wall incision disrupting the granulation tissue and tearing a blood vessel. Overnight she appears to be stable without any further evidence
of bleeding. She is status post 2 units of blood transfusion. At this point I encouraged her to get up and ambulate, she can have lunch. Assuming she is feeling well we can go ahead and discharge her home. She has a follow-up appointment with me
in the office on September 05.
--- NOTE | 2024-08-20 12:38 | CM ---
Patient seen at bedside with & mother
IA completed
Lives with in a 2 story home
Denies DME
plof: Independent
Denies VN/Rehab
PCP: Letty Ivan
Pharmacy: [address], [place]
PLAN: Home, no needs
to transport
== END 2024-08-20 13:10 | disposition home or self-care (01) ==
LOC: 2 SOUTH 17:18
PROVIDERS: Physician Assistant; ADMITTING PHYSICIAN Obstetrics & Gynecology Gynecology; EMERGENCY PHYSICIAN Emergency Medicine; FAMILY PHYSICIAN Physician Assistant Medical
DX: N99.820 Postprocedural hemorrhage of a genitourinary system organ or structure following a genitourinary system procedure (principal); Y83.8 Other surgical procedures as the cause of abnormal reaction of the patient, or of later complication, without mention of misadventure at the time of the procedure; Y92.9 Unspecified place or not applicable; N93.8 Other specified abnormal uterine and vaginal bleeding; D62 Acute posthemorrhagic anemia; I95.9 Hypotension, unspecified; R57.8 Other shock; R42 Dizziness and giddiness; R10.2 Pelvic and perineal pain; Q51.28 Other and unspecified doubling of uterus; J45.990 Exercise induced bronchospasm; K59.00 Constipation, unspecified; Z87.891 Personal history of nicotine dependence; Z79.51 Long term (current) use of inhaled steroids; Z86.018 Personal history of other benign neoplasm
CPT/HCPCS: 57410; 36430; 72191; 80053; 84703; 85014; 85018; 85025; 85027; 85610; 85730; 86850; 86900; 86901; 86920; 96361; 96374; 96375; 99291; G0378; P9016; Q9967